=== PATIENT | female | born 1950 | race Caucasian/White ===

== ENCOUNTER 2017-07-04 08:26 | Day surgery (SDC) | payer OTHER ==
[~2017-07-04 08:26] MED LIST: Acetaminophen TAB* 325 MG PO PRN; Buffered Lidocaine 0.9% SYRIN* 5 ML/SYR SYRINGE INTRADERM ONE; Midazolam* 1 MG/ML 2 ML VIAL (2 MG) ONE; methylPREDNISolone ACETATE 80* 80 MG/ML 1 ML VIAL ONE
[2017-07-04 11:47] VITALS: BP 147/81
--- NOTE | 2017-07-04 13:26 | OP ---
DATE OF OPERATION: 07/04/2017 - [facility] DATE OF : 1950. SURGEON: Rei Rosas M.D. PREOPERATIVE DIAGNOSIS: Cataract right eye. POSTOPERATIVE DIAGNOSIS: Cataract right eye. OPERATIVE PROCEDURE: Extracapsular cataract extraction with intraocular lens implant right eye. DESCRIPTION OF PROCEDURE: The patient was brought to the operating room after being given 1/2% Alcaine with epinephrine drops in the preoperative area. The eye was prepped and draped in the usual sterile fashion. Sterile drape and eyelid speculum were placed. Again, topical 1/2% Alcaine with epinephrine was given. A paracentesis incision was made at the 9 o'clock position with the No.75 blade. Clear cornea incision 2.2 x 2.2-mm was created at the 12 o'clock position starting at the anterior limbus using the 2.2-mm keratome. The anterior chamber was irrigated with 0.4 mL of 1% non-preservative intracameral lidocaine and filled with DisCoVisc. A capsulorrhexis was completed using the cystotome and the Utrata forceps. Hydrodissection was performed with balanced salt solution. The lens nucleus was removed with the Phacoemulsification handpiece without incident. Cortex was removed with the irrigation-aspiration handpiece. The capsular bag was re-inflated using DisCoVisc and an [id number] implant was inserted with the shooter. The pupil was only 3 mm, so a Malyugin ring was used to dilate the pupil prior to capsulorrhexis and removed after insertion of the lens. The irrigation-aspiration handpiece was used to remove all residual DisCoVisc. The eye was refilled with balanced salt solution and the wound checked and found to be watertight. Topical Maxitrol drops were given. Indication for complex cataract surgery: Pupillary abnormalities requiring pupil dilation device. [id number]/[facility] #: [id number] [facility]AMPUSShellie
== END 2017-07-04 11:17 | disposition home or self-care (01) ==
LOC: OREAST 08:26
PROVIDERS: ATTEND Specialist
DX: H25.11 Age-related nuclear cataract, right eye (principal); H21.561 Pupillary abnormality, right eye
CPT/HCPCS: J1040; J2250; V2632

== ENCOUNTER 2017-07-11 07:59 | Day surgery (SDC) | payer OTHER ==
[~2017-07-11 07:59] MED LIST changes: -Midazolam* 1 MG/ML 2 ML VIAL (2 MG) ONE; -methylPREDNISolone ACETATE 80* 80 MG/ML 1 ML VIAL ONE
[2017-07-11] MEDS ORDERED: Midazolam* 1 MG/ML 2 ML VIAL (2 MG) ONE ×2 (10:18→10:27)
[2017-07-11] MEDS ORDERED: Povidone Iodine 5% OPTH* 30 ML BTL ONE (11:03)
[2017-07-11] MEDS ORDERED: Ketorolac 0.5% OPHTH (NF) 0.5 % 5 ML BTL ONE (11:03)
[2017-07-11] MEDS ORDERED: Phenylephrine 2.5% OPTH.SOL* 2 ML BTL ONE (11:03)
[2017-07-11] MEDS ORDERED: acetaZOLAMIDE TAB* 250 MG ONE (11:03)
[2017-07-11] MEDS ORDERED: Cyclopentolate 1% OPTH.SOL* 2 ML BTL ONE (11:03)
[2017-07-11] MEDS ORDERED: Lidocaine 1% MPF* 2 ML VIAL ONE (11:03)
[2017-07-11] MEDS ORDERED: Lidocaine 2% EPI 1:200000 MPF* 20 ML VIAL ONE (11:03)
[2017-07-11] MEDS ORDERED: Proparacaine 0.5% OPHTH.SOL* 15 ML BTL ONE (11:03)
[2017-07-11] MEDS ORDERED: Neomycin/Polymy/Dex OPTH.SUSP* MAXITROL 0.1% 5 ML ONE (11:03)
[2017-07-11 11:07] VITALS: BP 115/97
--- NOTE | 2017-07-11 12:45 | OP ---
DATE OF OPERATION: 07/11/2017. DATE OF : 1950. SURGEON: Rei Rosas M.D. PREOPERATIVE DIAGNOSIS: Cataract left eye. POSTOPERATIVE DIAGNOSIS: Cataract left eye. OPERATIVE PROCEDURE: Extracapsular cataract extraction with intraocular lens implant left eye. PROCEDURE: The patient was brought to the operating room after being given 1/2 % Alcaine with epinephrine drops in the preoperative area. The eye was prepped and draped in the usual sterile fashion. Sterile drape and eyelid speculum were placed. Again, topical 1/2% Alcaine with epinephrine was given. A paracentesis incision was made at the 3 o'clock position with the No.75 blade. Clear cornea incision 2.2 x 2.2-mm was created at the 6 o'clock position starting at the anterior limbus using the 2.2-mm keratome. The anterior chamber was irrigated with 0.4 mL of 1% non-preservative intracameral lidocaine and filled with DisCoVisc. A capsulorrhexis was completed using the cystotome and the Utrata forceps. Hydrodissection was performed with balanced salt solution. The lens nucleus was removed with the Phacoemulsification handpiece without incident. Cortex was removed with the irrigation-aspiration handpiece. The capsular bag was re-inflated using DisCoVisc and an [id number] 22.5 implant was inserted with the shooter and oriented to the 162 degree meridian. The pupil was only about 4 mm, so a Malyugin ring was used and placed prior capsulorrhexis and removed after insertion of the lens. The irrigation- aspiration handpiece was used to remove all residual DisCoVisc. The eye was refilled with balanced salt solution and the wound checked and found to be watertight. Topical Maxitrol drops were given. Indication for complex cataract surgery: Pupillary abnormalities requiring ____ dilation___ device. [id number]/[facility] #: [id number] LOY
== END 2017-07-11 11:05 | disposition home or self-care (01) ==
LOC: OREAST 07:59
PROVIDERS: ATTEND Specialist
DX: H25.12 Age-related nuclear cataract, left eye (principal); H21.562 Pupillary abnormality, left eye; E78.5 Hyperlipidemia, unspecified
CPT/HCPCS: A9270-GY; J2250; V2787